=== PATIENT | female | born 1950 | race Caucasian/White ===

== ENCOUNTER 2018-09-24 22:33 | Emergency (ER) | payer MEDICARE, BC ==
--- NOTE | 2018-09-24 22:58 | EDM.PDOC ---
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 Past medical history: As per history of present illness and as reviewed below otherwise noncontributory. Surgical history: As per history of present illness and as reviewed below otherwise noncontributory. Social history: No reported history of drug or alcohol abuse. Family history: As per history of present illness and as reviewed below otherwise noncontributory. Physical exam: HEENT: Atraumatic, normocephalic, pupils reactive, negative for conjunctival pallor or scleral icterus, mucous membranes moist, throat clear, neck supple, nontender, trachea midline. Lungs: Clear to auscultation, breath sounds equal bilaterally, chest nontender. Heart: S1S2, regular, negative for clicks, rubs, or JVD. Abdomen: Soft, nondistended, nontender. Negative for masses or hepatosplenomegaly. Negative for costovertebral tenderness. Pelvis: Stable nontender. Genitourinary: Deferred. Rectal: Deferred. Extremities: Atraumatic, negative for cords or calf pain. Neurovascular unremarkable. Neuro: Awake, alert, oriented. Cranial nerves II through XII unremarkable. Cerebellum unremarkable. Motor and sensory unremarkable throughout. Exam nonfocal. Diagnostics: None Therapeutics: None Impression: 1 history of rheumatoid arthritis #2 history of chronic pain syndrome #3 medical screening exam Definitive disposition and diagnosis as appropriate pending reevaluation and review of above. Left Upper Arm Pain Score (Numeric/FACES): 10 - Related Data Allergies Allergy/AdvReac Type Severity Reaction Status Date / Time Fish pills Allergy Vomiting Uncoded 09/24/18 22:45 Home Meds: Home Meds . [Unable to Verify Home Med List] 09/24/18 [History] Past Medical History Musculoskeletal History: Reports: RA - Past Surgical History Female Surgical History: Reports: Section, Tubal Ligation Social & Family History - Family History Family Medical History: Noncontributory - Tobacco Use Smoking Status *Q: Current Every Day Smoker Years of Tobacco use: 50 Packs/Tins Daily: 0.5 - Recreational Drug Use Recreational Drug Use: No Review of Systems - Review of Systems Review Of Systems: ROS reveals no pertinent complaints other than HPI. ED EXAM, GENERAL - Physical Exam Exam: See Below (See dictation) Course - Vital Signs Last Recorded V/S: Last Vital Signs Temp 36.3 C 09/24/18 22:41 Pulse 88 09/24/18 22:41 Resp 20 09/24/18 22:41 BP 146/85 H 09/24/18 22:41 Pulse Ox 98 09/24/18 22:41 Departure - Departure Time of Disposition: 22:57 Disposition: Home, Self-Care 01 Condition: Good Clinical Impression: History of rheumatoid arthritis, Chronic pain syndrome, Encounter for medical screening examination - Discharge Information Referrals: PCP,None [Primary Care Provider] - Additional Instructions: The following information is given to patients seen in the emergency department who are being discharged to home. This information is to outline your options for follow-up care. We provide all patients seen in our emergency department with a follow-up referral. The need for follow-up, as well as the timing and circumstances, are variable depending upon the specifics of your emergency department visit. If you don't have a primary care physician on staff, we will provide you with a referral. We always advise you to contact your personal physician following an emergency department visit to inform them of the circumstance of the visit and for follow-up with them and/or the need for any referrals to a consulting specialist. The emergency department will also refer you to a specialist when appropriate. This referral assures that you have the opportunity for followup care with a specialist. All of these measure are taken in an effort to provide you with optimal care, which includes your followup. Under all circumstances we always encourage you to contact your private physician who remains a resource for coordinating your care. When calling for followup care, please make the office aware that this follow-up is from your recent emergency room visit. If for any reason you are refused follow-up, please contact the [facility] emergency department at and asked to speak to the emergency department charge nurse. Continue current medications follow-up with private medical doctor tomorrow as discussed and return as needed discussed
== END 2018-09-24 23:10 | disposition home or self-care (01) ==
LOC: MW.ED 22:33
DX: G89.4 Chronic pain syndrome (principal); M05.9 Rheumatoid arthritis with rheumatoid factor, unspecified
CPT/HCPCS: 99282; 99283

== ENCOUNTER 2021-07-06 06:35 | Observation (INO) | payer MEDICARE, BC ==
--- NOTE | 2021-07-06 06:53 | EDM.PDOC ---
<Kobi Celis - Last Filed: 07/06/21 06:53> ED HPI GENERAL MEDICAL PROBLEM - General Chief Complaint: General Stated Complaint: SEVERE CERVICAL SPINE PAIN Time Seen by Provider: 07/06/21 06:45 - History of Present Illness INITIAL COMMENTS - FREE TEXT/NARRATIVE: CHIEF COMPLAINT(S): Fall HISTORY OF PRESENT ILLNESS: This is a 70-year-old man with a past medical history rheumatoid arthritis and chronic pain syndrome per EMR who comes to the emergency department with a chief complaint of fall. The patient states that she was walking on her way to the bathroom when she felt weak as she was having trouble with her vertebrae all day and all night and she may have fell/slid down the wall. She states that she may have hit her head but denies any loss of consciousness. She states that she was experiencing severe neck pain which she currently is rating her pain a 0-10. Per EMS they did provide her with 100 mcg of fentanyl. The patient denies any bowel incontinence, urinary incontinence, saddle anesthesia. She denies any preceding chest pain or shortness of breath. She denies any lower extremity edema. She states that the pain is exacerbated by movement however currently she has no pain at all. She denies any other symptoms. She cannot describe the type of pain. REVIEW OF SYSTEMS: Constitutional: Denies fever, chills. Eyes: Denies eye pain Ears, Nose, Mouth, & Throat: Denies earache Cardiovascular: Denies chest pain Respiratory: Denies shortness of breath Gastrointestinal: Denies Nausea, vomiting, diarrhea, hematochezia. Genitourinary: Denies hematuria Skin:Denies a rash MSK: Positive for neck pain Neurological: Denies blurred vision, numbness, tingling, Psychiatric: Denies depression PAST MEDICAL HISTORY: As per history of present illness and as reviewed below ot herwise noncontributory. SURGICAL HISTORY: As per history of present illness and as reviewed below otherwise noncontributory. SOCIAL HISTORY: As per history of present illness and as reviewed below otherwise noncontributory. FAMILY HISTORY: As per history of present illness and as reviewed below otherwise noncontributory. EXAMINATION OF ORGAN SYSTEMS/BODY AREAS: Constitutional: Blood pressure was 103/45, heart rate 74, respiratory rate 20 with an oxygen saturation a 6% on room air. Temperature 36.6 General: Middle-aged woman who is in no acute distress Psychiatric: Appropriate mood and affect. Intermittently tearful and crying Eyes: No scleral icterus or conjunctival erythema pupils are equal round reactive to light. ENMT: Moist mucous membranes. No pharyngeal erythema no blood in the oropharynx. No missing or chipped teeth. Cardiovascular: Regular, rate, and rhythm. No gallops, murmurs, or rubs. Bilateral upper extremity and lower extremity pulses symmetric and intact. No peripheral edema. No JVD. Respiratory: Lungs clear to auscultation bilaterally. No wheezes, rales, or rhonchi. Gastrointestinal: Soft, non-tender, non-distended. Normoactive bowel sounds Genitourinary: No suprapubic tenderness Musculoskeletal: Normal range of motion. There was no cervical, lumbar, thoracic midline tenderness. No step-offs. Skin: No lesions or abrasions. Neurological: Alert, GCS 15 strength and sensation grossly intact in the upper and lower extremities bilaterally MEDICAL DECISION MAKING AND COURSE IN THE ED WITH INTERPRETATION/REVIEW OF DIAGNOSTIC STUDIES: 70-year-old woman with a past medical history of rheumatoid arthritis and chronic pain syndrome who presents to the emergency department with reported mechanical fall versus syncope with a confusing history with no obvious signs of trauma on the patient's body who is intermittently tearful and crying. At this time it is uncertain as to why the patient was feeling weak at the time. We will obtain an EKG to evaluate for arrhythmia. Will obtain a cardiac work-up including serum alcohol level to evaluate for intoxication. Obtain CT head and CT C-spine given the possibility of head trauma neck trauma. The c-collar is already in place. Obtain a chest x-ray. Patient currently reports 0 out of 10 pain therefore no additional pain medication will be provided. DDx: Fracture, ACS, alcohol intoxication, chronic pain DISPOSITION: Patient was signed out to [facility] physician pending further work-up and final disposition CONDITION: Fair PROCEDURES: None FINAL IMPRESSION(S)/DIAGNOSES: 1. Acute mechanical fall versus syncope 2. Acute neck pain Kobi Celis M.D. Posterior Neck Pain Score (Numeric/FACES): 7 - Related Data Allergies Allergy/AdvReac Type Severity Reaction Status Date / Time Fish pills Allergy Vomiting Uncoded 07/06/21 06:39 Home Meds: Home Meds Acetaminophen [Tylenol Arthritis Pain] 650 mg PO TID 07/06/21 [History] Baclofen 10 mg PO TID 07/06/21 [History] Calcium Carbonate [Calcium] 600 mg PO BID 07/06/21 [History] Folic Acid 1 mg PO DAILY 07/06/21 [History] Gabapentin [Neurontin] 300 mg PO TID 07/06/21 [History] Meloxicam 7.5 mg PO DAILY PRN 07/06/21 [History] hydrOXYzine HCL [Hydroxyzine HCl] 25 mg PO DAILY 07/06/21 [History] predniSONE [Prednisone] 2.5 mg PO DAILY 07/06/21 [History] Citalopram [Citalopram HBr] 10 mg PO DAILY 07/07/21 [History] Past Medical History HEENT History: Reports: None Cardiovascular History: Reports: Hypertension Respiratory History: Reports: None Gastrointestinal History: Reports: None Genitourinary History: Reports: None Musculoskeletal History: Reports: RA Neurological History: Reports: None Psychiatric History: Reports: None Hematologic History: Reports: None Immunologic History: Reports: None Oncologic (Cancer) History: Reports: None Dermatologic History: Reports: None - Past Surgical History Head Surgeries/Procedures: Reports: None HEENT Surgical History: Reports: None Female Surgical History: Reports: Section, Tubal Ligation Oncologic Surgical History: Reports: None Social & Family History - Family History Family Medical History: No Pertinent Family History - Recreational Drug Use Recreational Drug Use: No ED ROS GENERAL - Review of Systems Review Of Systems: See Below ED EXAM, GENERAL - Physical Exam Exam: See Below Departure - Departure Disposition: Refer to Observation Clinical Impression: Orthostasis, Syncope - Discharge Information Sepsis Event Note (ED) - Evaluation Sepsis Screening Result: No Definite Risk <Devon Hale - Last Filed: 07/08/21 07:47> ED HPI GENERAL MEDICAL PROBLEM - History of Present Illness INITIAL COMMENTS - FREE TEXT/NARRATIVE: 9:17 AM: Signout received at 7 AM. Patient presents ER today with a possible syncopal episode at home. CT scan of her head and cervical spine did not reveal any acute pathology. Patient's labs are relatively unremarkable. C-collar was cleared by Dr. Teague after review of CT and clinical exam. Patient denies any weakness to her upper or lower extremities. Patient has no new midline tenderness. Patient reported that she needed to go to the bathroom so we walked her to the bathroom. While walking to the bathroom patient started feeling dizzy and had a subsequent syncopal episode. Patient was laid down gently with no head trauma by myself and the nurse. I was able to palpate a femoral pulse. Patient had sonorous respirations for approximately 1 minute and then slowly became responsive. Patient had no seizure activity. Patient was placed back on the bed safely and vital signs were obtained. Patient's blood pressure was 110/60, heart rate was 72, pulse ox was 98% on room air. July 06, 2021 8:24 AM EKG: As interpreted by ER physician: Alexia: Nonspecific ST-T wave abnormalities Normal axis No evidence of ST elevation NM Normal sinus rhythm heart rate of 60 Repeat troponin: Given patient's hypotension with orthostatics she was given 1 L of NSS. Given her second syncopal episode witnessed here in the ED, I feel patient will need to be admitted for further cardiac monitoring and hydration. Case discussed with Dr. cox who agrees with plan to admit for observation and hydration. Course - Vital Signs Last Recorded V/S: Last Vital Signs Temp 98 F 07/07/21 12:00 Pulse 61 07/07/21 12:00 Resp 16 07/07/21 12:00 BP 120/45 L 07/07/21 12:00 Pulse Ox 97 07/07/21 12:00 Orthostatic Blood Pressure [ 50/22 Standing] Orthostatic Blood Pressure [ 92/49 Sitting] Orthostatic Blood Pressure [ 97/62 Supine] - Orders/Labs/Meds Labs: Laboratory Tests 07/06/21 07/06/21 07/06/21 Range/Units 06:58 07:09 07:09 WBC 13.09 H (4.0-11.0) K/uL RBC 3.58 L (4.30-5.90) M/uL Hgb 12.2 (12.0-16.0) g/dL Hct 35.7 L (36.0-46.0) % MCV 99.7 H (80.0-98.0) fL MCH 34.1 H (27.0-32.0) pg MCHC 34.2 (31.0-37.0) g/dL RDW Std Deviation 46.9 (28.0-62.0) fl RDW Coeff of Magda 13 (11.0-15.0) % Plt Count 334 (150-400) K/uL MPV 8.70 (7.40-12.00) fL Neut % (Auto) 76.4 (48.0-80.0) % Lymph % (Auto) 15.0 L (16.0-40.0) % [place] % (Auto) 8.2 (0.0-15.0) % Eos % (Auto) 0.2 (0.0-7.0) % Baso % (Auto) 0.2 (0.0-1.5) % Neut # (Auto) 10.0 H (1.4-5.7) K/uL Lymph # (Auto) 2.0 (0.6-2.4) K/uL [place] # (Auto) 1.1 H (0.0-0.8) K/uL Eos # (Auto) 0.0 (0.0-0.7) K/uL Baso # (Auto) 0.0 (0.0-0.1) K/uL Nucleated RBC % 0.0 /100WBC Nucleated RBCs # 0 K/uL INR 1.01 Sodium (136-145) mmol/L Potassium (3.5-5.1) mmol/L Chloride (98-107) mmol/L Carbon Dioxide (21.0-32.0) mmol/L BUN (7.0-18.0) mg/dL Creatinine (0.6-1.0) mg/dL Est Cr Clr Drug Dosing mL/min Estimated GFR (MDRD) ml/min Glucose (74-106) mg/dL Calcium (8.5-10.1) mg/dL Magnesium (1.8-2.4) mg/dL Total Bilirubin (0.2-1.0) mg/dL AST (15-37) IU/L ALT (14-63) IU/L Alkaline Phosphatase (46-116) U/L Troponin I (0.000-0.056) ng/mL Total Protein (6.4-8.2) g/dL Albumin (3.4-5.0) g/dL Globulin (2.6-4.0) g/dL Albumin/Globulin Ratio (0.9-1.6) Urine Color Urine Appearance Urine pH (5.0-8.0) Ur Specific [place] (1.001-1.035) Urine Protein (NEGATIVE) mg/dL Urine Glucose (UA) (NEGATIVE) mg/dL Urine Ketones (NEGATIVE) mg/dL Urine Occult Blood (NEGATIVE) Urine Nitrite (NEGATIVE) Urine Bilirubin (NEGATIVE) Urine Urobilinogen (<2.0) EU/dL Ur Leukocyte Esterase (NEGATIVE) Ethyl Alcohol mg/dL SARS-CoV-2 RNA (DEVANTE) NEGATIVE (NEGATIVE) 07/06/21 07/06/21 07/06/21 Range/Units 07:09 08:37 09:37 WBC (4.0-11.0) K/uL RBC (4.30-5.90) M/uL Hgb (12.0-16.0) g/dL Hct (36.0-46.0) % MCV (80.0-98.0) fL MCH (27.0-32.0) pg MCHC (31.0-37.0) g/dL RDW Std Deviation (28.0-62.0) fl RDW Coeff of Magda (11.0-15.0) % Plt Count (150-400) K/uL MPV (7.40-12.00) fL Neut % (Auto) (48.0-80.0) % Lymph % (Auto) (16.0-40.0) % [place] % (Auto) (0.0-15.0) % Eos % (Auto) (0.0-7.0) % Baso % (Auto) (0.0-1.5) % Neut # (Auto) (1.4-5.7) K/uL Lymph # (Auto) (0.6-2.4) K/uL [place] # (Auto) (0.0-0.8) K/uL Eos # (Auto) (0.0-0.7) K/uL Baso # (Auto) (0.0-0.1) K/uL Nucleated RBC % /100WBC Nucleated RBCs # K/uL INR Sodium 133 L (136-145) mmol/L Potassium 4.3 (3.5-5.1) mmol/L Chloride 98 (98-107) mmol/L Carbon Dioxide 26.2 (21.0-32.0) mmol/L BUN 13 (7.0-18.0) mg/dL Creatinine 0.6 (0.6-1.0) mg/dL Est Cr Clr Drug Dosing 78.40 mL/min Estimated GFR (MDRD) > 60.0 ml/min Glucose 113 H (74-106) mg/dL Calcium 8.3 L (8.5-10.1) mg/dL Magnesium 1.9 (1.8-2.4) mg/dL Total Bilirubin 0.3 (0.2-1.0) mg/dL AST 17 (15-37) IU/L ALT 22 (14-63) IU/L Alkaline Phosphatase 89 (46-116) U/L Troponin I < 0.050 < 0.050 (0.000-0.056) ng/mL Total Protein 6.3 L (6.4-8.2) g/dL Albumin 2.7 L (3.4-5.0) g/dL Globulin 3.6 (2.6-4.0) g/dL Albumin/Globulin Ratio 0.8 L (0.9-1.6) Urine Color YELLOW Urine Appearance SLT CLOUDY Urine pH 7.0 (5.0-8.0) Ur Specific [place] 1.010 (1.001-1.035) Urine Protein NEGATIVE (NEGATIVE) mg/dL Urine Glucose (UA) NEGATIVE (NEGATIVE) mg/dL Urine Ketones NEGATIVE (NEGATIVE) mg/dL Urine Occult Blood NEGATIVE (NEGATIVE) Urine Nitrite NEGATIVE (NEGATIVE) Urine Bilirubin NEGATIVE (NEGATIVE) Urine Urobilinogen 0.2 (<2.0) EU/dL Ur Leukocyte Esterase NEGATIVE (NEGATIVE) Ethyl Alcohol < 3.0 mg/dL SARS-CoV-2 RNA (DEVANTE) (NEGATIVE) Meds: Medications Discontinued Medications Generic Name Dose Route Start Last Admin Trade Name Freq PRN Reason Stop Dose Admin Acetaminophen 650 mg 07/06/21 14:43 Acetaminophen 325 Mg Tab PO Q4H PRN Pain (Mild 1-3)/fever Hydrocodone Bitart/Acetaminophen 2 tab 07/06/21 10:22 07/06/21 10:32 Acetaminophen/Hydrocodone 325-5 Mg Tab PO 07/06/21 10:23 2 tab ONETIME ONE Administration Baclofen 10 mg 07/06/21 10:22 07/06/21 10:49 Baclofen 10 Mg Tab PO 07/06/21 10:23 10 mg ONETIME ONE Administration Baclofen 10 mg 07/06/21 10:45 07/06/21 11:32 Baclofen 10 Mg Tab PO 07/06/21 10:46 Not Given ONETIME ONE Baclofen 10 mg 07/06/21 22:00 07/07/21 14:14 Baclofen 10 Mg Tab PO 10 mg TID CHUN Administration Citalopram Hydrobromide 10 mg 07/06/21 15:00 07/06/21 15:27 Citalopram 20 Mg Tab PO 10 mg DAILY CHUN Administration Citalopram Hydrobromide 10 mg 07/07/21 09:00 07/07/21 12:41 Citalopram 20 Mg Tab PO Not Given DAILY CHUN Citalopram Hydrobromide 20 mg 07/07/21 10:00 07/07/21 10:19 Citalopram 20 Mg Tab PO 20 mg DAILY CHUN Administration Enoxaparin Sodium 40 mg 07/06/21 15:00 07/07/21 14:14 Enoxaparin 40 Mg/0.4 Ml Syringe SUBCUT 40 mg Q24H CHUN Administration Gabapentin 300 mg 07/06/21 22:00 07/07/21 14:14 Gabapentin 300 Mg Cap PO 300 mg TID CHUN Administration Hydroxyzine HCl 12.5 mg 07/06/21 15:00 07/06/21 15:27 Hydroxyzine Hcl 25 Mg Tab PO 12.5 mg DAILY PRN Administration Anxiety Sodium Chloride 1,000 mls @ 999 mls/hr 07/06/21 08:26 07/06/21 08:48 Normal Saline IV 07/06/21 09:26 999 mls/hr .Bolus ONE Administration Sodium Chloride 1,000 mls @ 75 mls/hr 07/06/21 14:45 07/07/21 03:47 Normal Saline IV 75 mls/hr Q13H CHUN Administration Meloxicam 7.5 mg 07/06/21 15:00 07/07/21 06:38 Meloxicam 7.5 Mg Tab PO 7.5 mg DAILY PRN Administration Pain Midodrine 5 mg 07/07/21 07:30 07/07/21 11:38 Midodrine 5 Mg Tab PO 5 mg TIDAC CHUN Administration Non-Formulary Medication 1 each 07/06/21 14:37 Hydrocodone/Acetaminophen PO Q4HR PRN Pain Ondansetron HCl 4 mg 07/06/21 14:43 Ondansetron 4 Mg Tab.Dis PO Q4H PRN nausea, able to take PO Prednisone 2.5 mg 07/06/21 15:45 07/07/21 08:00 Prednisone 5 Mg Tab PO 2.5 mg DAILY CHUN Administration Departure - Departure Time of Disposition: 10:00 Condition: Fair
--- NOTE | 2021-07-06 06:58 | PCM.EKG ---
#1 Interpretation EKG Date: 07/06/21 Time: 06:51 Rhythm: NSR Rate (Beats/Min): 67 [place]: Normal P-Wave: Present QRS: Normal ST-T: Normal QT: Normal Comparison: NA - No Prior EKG EKG Interpretation Comments: Sinus Rhythm
--- NOTE | 2021-07-06 07:35 | CR ---
Indication: Fall Comparison: None available. Technique: Single AP view chest Findings: There is hyperinflation and chronic interstitial change. There are mildly increased interstitial markings likely representing pulmonary vascular congestion. There is minimal basilar atelectasis versus scar. There is no dense consolidation, effusion, or pneumothorax. The cardiomediastinal silhouette is within normal limits. The bony thorax is grossly intact. Impression: Mildly increased interstitial markings likely representing pulmonary vascular congestion with minimal basilar atelectasis versus scar. Dictated by Nikko Savage MD @ 07/06/2021 7:34:22 AM (Electronically Signed)
--- NOTE | 2021-07-06 07:43 | CT ---
Indication: Fall Technique: Volumetric multidetector CT images of the head were obtained without the administration of low osmolar intravenous contrast. Comparison: None available Findings: There is no intra-axial or extra-axial fluid collection. There is no mass effect or midline shift. There is age-related cortical atrophy with mild sulcal widening and ex vacuo dilatation of the lateral ventricles. There are chronic small vessel disease changes in the subcortical and periventricular white matter without lost mcdonald-white differentiation. The orbits and their contents are grossly within normal limits. The bony calvarium is grossly intact. The paranasal sinuses are clear. The mastoid air cells are well aerated. Impression: 1. Age-related changes of the brain without acute intracranial abnormality. Please note that all CT scans at this facility use dose modulation, iterative reconstruction, and/or weight-based dosing when appropriate to reduce radiation dose to as low as reasonably achievable. Dictated by Nikko Savage MD @ 07/06/2021 7:42:35 AM (Electronically Signed)
--- NOTE | 2021-07-06 07:47 | CT ---
Indication: Neck pain, fall Technique: Volumetric multidetector CT images of the cervical spine were obtained without the administration of IV contrast. Comparison: None available. Findings: The cervical vertebral body heights are grossly maintained. There is minimal anterolisthesis of C3 on C4 and retrolisthesis of C4 on C5 as well as marked anterolisthesis of C6 on C7. There is no displaced fracture or dislocation. There is moderate to severe degenerative disc disease with disc height loss and marginal osteophyte formation with subchondral sclerotic changes worst the C6-C7 levels. There is severe facet arthrosis. There is moderate paraseptal emphysematous changes of the upper lobes with mild biapical pleural thickening. Impression: Moderate to severe degenerative changes of the cervical spine without acute osseous abnormality. Please note that all CT scans at this facility use dose modulation, iterative reconstruction, and/or weight-based dosing when appropriate to reduce radiation dose to as low as reasonably achievable. Dictated by Nikko Savage MD @ 07/06/2021 7:46:58 AM (Electronically Signed)
[2021-07-06 07:52] LABS: BLOOD UREA NITROGEN,BUN 13 mg/dL (7.0-18.0); CARBON DIOXIDE,CO2 26.2 mmol/L (21.0-32.0); CHLORIDE,CL 98 mmol/L (98-107); GLUCOSE RANDOM 113 mg/dL (74-106); POTASSIUM,K 4.3 mmol/L (3.5-5.1); SODIUM,NA 133 mmol/L (136-145)
[2021-07-06] MEDS ORDERED: Sodium Chloride 0.9% 1,000 ML IV ONE (08:26)
[2021-07-06] MEDS ORDERED: Acetaminophen/HYDROcodone 325-5 MG Tab PO ONE (10:22)
[2021-07-06] MEDS ORDERED: Baclofen 10 MG Tab PO ONE ×2 (10:22→10:45)
--- NOTE | 2021-07-06 14:27 | PCM.HP.2 ---
H&P History of Present Illness - General Date of Service: 07/06/21 Admit Problem/Dx: Admission Diagnosis/Problem Admission Diagnosis/Problem Near syncope - History of Present Illness Initial Comments - Free Text/Narative: Mrs. Summer Hedrick is a 70 y/o F with a h/o rheumatoid arthritis and chronic pain syndrome who was brought to the ED after she fell at home. The patient states that she got up at about 5 am to use the bathroom. On her way she got very weak in her legs. She leaned against a wall and slowly slid to the ground. She states that she may have hit her head but denies any loss of consciousness. She states that she was experiencing severe neck pain which she currently is rating her pain 10/10. She was able to afsaneh the EMS. On arrival she was given some IV Fentanyl for her neck pain. The patient denies any loss of bowel or bladder function. She also denies having any localized weaknesses or loss of sensation. In the ED her orthostatic vitals were positive. She has been eating and drinking just fine. Denies having any nausea, vomiting, diarrhea or abdominal pain. She denies having any other constitutional symptoms and denies having been around any sick contacts. She has no history of seizures or any arrhythmias. Posterior Neck Pain Score (Numeric/FACES): 7 - Related Data Allergies/Adverse Reactions: Allergies Allergy/AdvReac Type Severity Reaction Status Date / Time Fish pills Allergy Vomiting Uncoded 07/06/21 06:39 Home Medications: Home Meds Acetaminophen [Tylenol Arthritis Pain] 650 mg PO TID 07/06/21 [History] Baclofen 10 mg PO TID 07/06/21 [History] Calcium Carbonate [Calcium] 600 mg PO BID 07/06/21 [History] Cholecalciferol (Vitamin D3) [Vitamin D] 1 tab PO DAILY 07/06/21 [History] Escitalopram [Lexapro] 20 mg PO DAILY 07/06/21 [History] Folic Acid 1 mg PO DAILY 07/06/21 [History] Gabapentin [Neurontin] 300 mg PO TID 07/06/21 [History] Hydrocodone/Acetaminophen [HYDROcodone-Acetaminophen 5-325 MG] 1 each PO Q4HR PRN 07/06/21 [History] Meloxicam 7.5 mg PO DAILY PRN 07/06/21 [History] hydrOXYzine HCL [Hydroxyzine HCl] 25 mg PO DAILY 07/06/21 [History] predniSONE [Prednisone] 2.5 mg PO DAILY 07/06/21 [History] Past Medical History HEENT History: Reports: Impaired Vision Cardiovascular History: Reports: None Respiratory History: Reports: COPD Gastrointestinal History: Reports: None Genitourinary History: Reports: None 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: Musculoskeletal History: Reports: Back Pain, Chronic, RA Neurological History: Reports: None Psychiatric History: Reports: Anxiety Endocrine/Metabolic History: Reports: None Hematologic History: Reports: None Immunologic History: Reports: None Oncologic (Cancer) History: Reports: None Dermatologic History: Reports: None - Infectious Disease History Infectious Disease History: Reports: Chicken Pox - Past Surgical History Head Surgeries/Procedures: Reports: None HEENT Surgical History: Reports: None Female Surgical History: Reports: Section, Tubal Ligation Musculoskeletal Surgical History: Reports: None Oncologic Surgical History: Reports: None Social & Family History - Family History Family Medical History: No Pertinent Family History - Tobacco Use Tobacco Use Status *Q: Current Every Day Tobacco User Years of Tobacco use: 52 Packs/Tins Daily: 0.5 - Caffeine Use Caffeine Use: Reports: Coffee - Recreational Drug Use Recreational Drug Use: No H&P Review of Systems - Review of Systems: Review Of Systems: Comprehensive ROS is negative, except as noted in HPI. Exam - Exam Exam: See Below - Vital Signs Vital Signs: Last Vital Signs Temp 97.7 F 07/06/21 12:21 Pulse 72 07/06/21 12:21 Resp 15 07/06/21 12:21 BP 83/42 L 07/06/21 12:21 Pulse Ox 96 07/06/21 12:21 Orthostatic Blood Pressure [ 50/22 Standing] Orthostatic Blood Pressure [ 92/49 Sitting] Orthostatic Blood Pressure [ 97/62 Supine] Weight: 123 lb 3.2 oz - Exam Physical Exam Comments:: General: Thin elderly female. In no acute distress CVS: S1S2 appreciated. RRR lungs: clear with no rales or wheezes pa: soft, non tender. bowel sounds present ext: no clubbing, cyanosis or edema neuro: moves all extremities. Sensation 5/5 bilaterally psych: stable mood and affect. - Patient Data Lab Results Last 24 hrs: Laboratory Results - last 24 hr 07/06/21 07/06/21 07/06/21 Range/Units 06:58 07:09 07:09 WBC 13.09 H (4.0-11.0) K/uL RBC 3.58 L (4.30-5.90) M/uL Hgb 12.2 (12.0-16.0) g/dL Hct 35.7 L (36.0-46.0) % MCV 99.7 H (80.0-98.0) fL MCH 34.1 H (27.0-32.0) pg MCHC 34.2 (31.0-37.0) g/dL RDW Std Deviation 46.9 (28.0-62.0) fl RDW Coeff of Magda 13 (11.0-15.0) % Plt Count 334 (150-400) K/uL MPV 8.70 (7.40-12.00) fL Neut % (Auto) 76.4 (48.0-80.0) % Lymph % (Auto) 15.0 L (16.0-40.0) % [place] % (Auto) 8.2 (0.0-15.0) % Eos % (Auto) 0.2 (0.0-7.0) % Baso % (Auto) 0.2 (0.0-1.5) % Neut # (Auto) 10.0 H (1.4-5.7) K/uL Lymph # (Auto) 2.0 (0.6-2.4) K/uL [place] # (Auto) 1.1 H (0.0-0.8) K/uL Eos # (Auto) 0.0 (0.0-0.7) K/uL Baso # (Auto) 0.0 (0.0-0.1) K/uL Nucleated RBC % 0.0 /100WBC Nucleated RBCs # 0 K/uL INR 1.01 Sodium (136-145) mmol/L Potassium (3.5-5.1) mmol/L Chloride (98-107) mmol/L Carbon Dioxide (21.0-32.0) mmol/L BUN (7.0-18.0) mg/dL Creatinine (0.6-1.0) mg/dL Est Cr Clr Drug Dosing mL/min Estimated GFR (MDRD) ml/min Glucose (74-106) mg/dL Calcium (8.5-10.1) mg/dL Magnesium (1.8-2.4) mg/dL Total Bilirubin (0.2-1.0) mg/dL AST (15-37) IU/L ALT (14-63) IU/L Alkaline Phosphatase (46-116) U/L Troponin I (0.000-0.056) ng/mL Total Protein (6.4-8.2) g/dL Albumin (3.4-5.0) g/dL Globulin (2.6-4.0) g/dL Albumin/Globulin Ratio (0.9-1.6) Urine Color Urine Appearance Urine pH (5.0-8.0) Ur Specific [place] (1.001-1.035) Urine Protein (NEGATIVE) mg/dL Urine Glucose (UA) (NEGATIVE) mg/dL Urine Ketones (NEGATIVE) mg/dL Urine Occult Blood (NEGATIVE) Urine Nitrite (NEGATIVE) Urine Bilirubin (NEGATIVE) Urine Urobilinogen (<2.0) EU/dL Ur Leukocyte Esterase (NEGATIVE) Ethyl Alcohol mg/dL SARS-CoV-2 RNA (DEVANTE) NEGATIVE (NEGATIVE) 07/06/21 07/06/21 07/06/21 Range/Units 07:09 08:37 09:37 WBC (4.0-11.0) K/uL RBC (4.30-5.90) M/uL Hgb (12.0-16.0) g/dL Hct (36.0-46.0) % MCV (80.0-98.0) fL MCH (27.0-32.0) pg MCHC (31.0-37.0) g/dL RDW Std Deviation (28.0-62.0) fl RDW Coeff of Magda (11.0-15.0) % Plt Count (150-400) K/uL MPV (7.40-12.00) fL Neut % (Auto) (48.0-80.0) % Lymph % (Auto) (16.0-40.0) % [place] % (Auto) (0.0-15.0) % Eos % (Auto) (0.0-7.0) % Baso % (Auto) (0.0-1.5) % Neut # (Auto) (1.4-5.7) K/uL Lymph # (Auto) (0.6-2.4) K/uL [place] # (Auto) (0.0-0.8) K/uL Eos # (Auto) (0.0-0.7) K/uL Baso # (Auto) (0.0-0.1) K/uL Nucleated RBC % /100WBC Nucleated RBCs # K/uL INR Sodium 133 L (136-145) mmol/L Potassium 4.3 (3.5-5.1) mmol/L Chloride 98 (98-107) mmol/L Carbon Dioxide 26.2 (21.0-32.0) mmol/L BUN 13 (7.0-18.0) mg/dL Creatinine 0.6 (0.6-1.0) mg/dL Est Cr Clr Drug Dosing 78.40 mL/min Estimated GFR (MDRD) > 60.0 ml/min Glucose 113 H (74-106) mg/dL Calcium 8.3 L (8.5-10.1) mg/dL Magnesium 1.9 (1.8-2.4) mg/dL Total Bilirubin 0.3 (0.2-1.0) mg/dL AST 17 (15-37) IU/L ALT 22 (14-63) IU/L Alkaline Phosphatase 89 (46-116) U/L Troponin I < 0.050 < 0.050 (0.000-0.056) ng/mL Total Protein 6.3 L (6.4-8.2) g/dL Albumin 2.7 L (3.4-5.0) g/dL Globulin 3.6 (2.6-4.0) g/dL Albumin/Globulin Ratio 0.8 L (0.9-1.6) Urine Color YELLOW Urine Appearance SLT CLOUDY Urine pH 7.0 (5.0-8.0) Ur Specific [place] 1.010 (1.001-1.035) Urine Protein NEGATIVE (NEGATIVE) mg/dL Urine Glucose (UA) NEGATIVE (NEGATIVE) mg/dL Urine Ketones NEGATIVE (NEGATIVE) mg/dL Urine Occult Blood NEGATIVE (NEGATIVE) Urine Nitrite NEGATIVE (NEGATIVE) Urine Bilirubin NEGATIVE (NEGATIVE) Urine Urobilinogen 0.2 (<2.0) EU/dL Ur Leukocyte Esterase NEGATIVE (NEGATIVE) Ethyl Alcohol < 3.0 mg/dL SARS-CoV-2 RNA (DEVANTE) (NEGATIVE) Result Diagrams: 07/06/21 07:09 07/06/21 07:09 Sepsis Event Note - Evaluation Sepsis Screening Result: No Definite Risk - Focused Exam Vital Signs: Vital Signs Temp Pulse Resp BP Pulse Ox 07/06/21 12:21 97.7 F 72 15 83/42 L 96 07/06/21 10:31 62 16 123/48 L 100 07/06/21 08:02 67 17 111/61 93 L 07/06/21 06:43 97.8 F 74 20 103/45 L 96 - Problem List (1) Near syncope SNOMED Code(s): 066822106 ICD Code: R55 - SYNCOPE AND COLLAPSE Status: Acute Current Visit: Yes (2) Orthostasis SNOMED Code(s): 30004558 ICD Code: I95.1 - ORTHOSTATIC HYPOTENSION Status: Acute Current Visit: Yes (3) Tobacco abuse SNOMED Code(s): 935814225 ICD Code: Z72.0 - TOBACCO USE Status: Acute Current Visit: Yes (4) Chronic pain syndrome SNOMED Code(s): 491025714 ICD Code: G89.4 - CHRONIC PAIN SYNDROME Status: Acute Current Visit: No (5) Polypharmacy SNOMED Code(s): 085743069 ICD Code: Z79.899 - OTHER FDC (CURRENT) DRUG THERAPY Status: Acute Current Visit: Yes (6) Full code status SNOMED Code(s): 692695536 ICD Code: Z78.9 - OTHER SPECIFIED HEALTH STATUS Status: Acute Current Visit: Yes Problem List Initiated/Reviewed/Updated: Yes Orders Last 24hrs: Active Orders 24 hr Category Date Time Status Patient Status [ADT] Routine ADT 07/06/21 09:16 Active Telemetry Monitoring [Cardiac Monitoring] [RC] . Care 07/06/21 11:04 Active DIRECTED Assessment/Plan Comment:: 71 y/o F admitted with a near syncope episode most likely due to orthostatic hypotension. Other etiologies include arrhythmia, neurocardiogenic and vasovagal syncope as well as non cardiac causes Admit pt under observation status. IV hydration orthostatics Q 8 Cervical spine disease out pt follow up Polypharmacy Pt will need a reduction in some of her psychoactive medications Chronic pain Full code status.
[2021-07-06] MEDS ORDERED: Non-Formulary Medication 1 Each (Hydrocodone/Acetaminophen 1 EACH Tablet) PO PRN (14:37)
[2021-07-06] MEDS ORDERED: Ondansetron 4 MG Tab.DIS PO PRN (14:43)
[2021-07-06] MEDS ORDERED: Acetaminophen 325 MG Tab PO PRN (14:43)
[2021-07-06] MEDS ORDERED: hydrOXYzine HCl 25 MG Tab PO PRN (15:00)
[2021-07-06] MEDS ORDERED: Citalopram 20 MG Tab PO SCH (15:00)
[2021-07-06] MEDS: Sodium Chloride 0.9% 1,000 ML IV SCH (15:27)
[2021-07-06] MEDS: Meloxicam 7.5 MG Tab PO PRN (15:27)
[2021-07-06] MEDS: Enoxaparin 40 MG/0.4 ML Syringe SUBCUT SCH (15:27)
[2021-07-06] MEDS: predniSONE 5 MG Tab PO SCH (16:24)
[2021-07-06] MEDS: Baclofen 10 MG Tab PO SCH (21:11)
[2021-07-06] MEDS: Gabapentin 300 MG Cap PO SCH (21:11)
[2021-07-07] MEDS: Sodium Chloride 0.9% 1,000 ML IV SCH (03:47)
[2021-07-07] MEDS: Gabapentin 300 MG Cap PO SCH ×2 (06:33→14:14)
[2021-07-07] MEDS: Baclofen 10 MG Tab PO SCH ×2 (06:33→14:14)
[2021-07-07] MEDS: Midodrine 5 MG Tab PO SCH ×2 (06:33→11:38)
[2021-07-07] MEDS: Meloxicam 7.5 MG Tab PO PRN (06:38)
[2021-07-07] MEDS: predniSONE 5 MG Tab PO SCH (08:00)
[2021-07-07 08:14] LABS: BLOOD UREA NITROGEN,BUN 8 mg/dL (7.0-18.0); CHLORIDE,CL 102 mmol/L (98-107); GLUCOSE RANDOM 121 mg/dL (74-106); POTASSIUM,K 3.4 mmol/L (3.5-5.1); SODIUM,NA 135 mmol/L (136-145)
[2021-07-07 08:38] LABS: CARBON DIOXIDE,CO2 25.7 mmol/L (21.0-32.0)
[2021-07-07] MEDS ORDERED: Citalopram 20 MG Tab PO SCH ×2 (09:00→10:00)
--- NOTE | 2021-07-07 12:27 | PCM.DCSUM1 ---
Discharge Summary - Hospital Course Free Text/Narrative:: Mrs. Summer Hedrick is a 70 y/o F with a h/o rheumatoid arthritis and chronic pain syndrome who was brought to the ED after she fell at home. The patient states that she got up at about 5 am to use the bathroom. On her way she got very weak in her legs. She leaned against a wall and slowly slid to the ground. She states that she may have hit her head but denies any loss of consciousness. She states that she was experiencing severe neck pain which she currently is rating her pain 10/10. She was able to afsaneh the EMS. On arrival she was given some IV Fentanyl for her neck pain. The patient denies any loss of bowel or bladder function. She also denies having any localized weaknesses or loss of sensation. In the ED her orthostatic vitals were positive. She has been eating and drinking just fine. Denies having any nausea, vomiting, diarrhea or abdominal pain. She denies having any other constitutional symptoms and denies having been around any sick contacts. She has no history of seizures or any arrhythmias. Diagnosis: Stroke: No - Discharge Data Discharge Date: 07/07/21 Discharge Disposition: Home, Self-Care 01 Condition: Stable - Referral to Home Health Primary Care Physician: PCP None - Discharge Diagnosis/Problem(s) (1) Near syncope SNOMED Code(s): 627775794 ICD Code: R55 - SYNCOPE AND COLLAPSE Status: Acute Current Visit: Yes (2) Orthostasis SNOMED Code(s): 83199599 ICD Code: I95.1 - ORTHOSTATIC HYPOTENSION Status: Acute Current Visit: Yes (3) Tobacco abuse SNOMED Code(s): 683290000 ICD Code: Z72.0 - TOBACCO USE Status: Acute Current Visit: Yes (4) Chronic pain syndrome SNOMED Code(s): 748127474 ICD Code: G89.4 - CHRONIC PAIN SYNDROME Status: Acute Current Visit: No (5) Polypharmacy SNOMED Code(s): 509227512 ICD Code: Z79.899 - OTHER BLOCK [employer]ABLE[employer] (CURRENT) DRUG THERAPY Status: Acute Current Visit: Yes (6) Full code status SNOMED Code(s): 889929451 ICD Code: Z78.9 - OTHER SPECIFIED HEALTH STATUS Status: Acute Current Visit: Yes - Discharge Plan *PRESCRIPTION DRUG MONITORING PROGRAM REVIEWED*: No *COPY OF PRESCRIPTION DRUG MONITORING REPORT IN PATIENT NALDO: No Home Medications: Home Meds Acetaminophen [Tylenol Arthritis Pain] 650 mg PO TID 07/06/21 [History] Baclofen 10 mg PO TID 07/06/21 [History] Calcium Carbonate [Calcium] 600 mg PO BID 07/06/21 [History] Folic Acid 1 mg PO DAILY 07/06/21 [History] Gabapentin [Neurontin] 300 mg PO TID 07/06/21 [History] Meloxicam 7.5 mg PO DAILY PRN 07/06/21 [History] hydrOXYzine HCL [Hydroxyzine HCl] 25 mg PO DAILY 07/06/21 [History] predniSONE [Prednisone] 2.5 mg PO DAILY 07/06/21 [History] Citalopram [Citalopram HBr] 10 mg PO DAILY 07/07/21 [History] Patient Handouts: Steps to Quit Smoking, [id number], Managing the Challenge of Quitting Smoking, Health Risks of Smoking, Smoking Tobacco Information, Adult, Orthostatic Hypotension, Near-Syncope, [id number] Referrals: PCP,None [Primary Care Provider] - - Discharge Summary/Plan Comment DC Time >30 min.: Yes Total # of Minutes for Discharge Time: 45 mins Discharge Summary/Plan Comment: Mrs. Summer Hedrick is a 70 y/o F with a h/o rheumatoid arthritis and chronic pain syndrome who was brought to the ED after she fell at home. She was noted to have orthostatic hypotension. She was given IVF's and midodrine. He BP normalized and she was discharged home the following day in a stable condition. Condition on discharge: Pt was stable Activity: as tolerated Diet regular Pt is to follow up with her PCP in 1 wk. Physical exam. General: Thin elderly female. In no acute distress. Pt is in good spirits today. CVS: S1S2 appreciated. RRR lungs: clear with no rales or wheezes pa: soft, non tender. bowel sounds present ext: no clubbing, cyanosis or edema neuro: moves all extremities. Sensation 5/5 bilaterally psych: stable mood and affect. - Patient Data Vitals - Most Recent: Last Vital Signs Temp 98 F 07/07/21 12:00 Pulse 61 07/07/21 12:00 Resp 16 07/07/21 12:00 BP 120/45 L 07/07/21 12:00 Pulse Ox 97 07/07/21 12:00 Orthostatic Blood Pressure [ 103/58 Standing] Orthostatic Blood Pressure [ 127/68 Sitting] Orthostatic Blood Pressure [ 120/65 Supine] Weight - Most Recent: 123 lb 3.2 oz I&O - Last 24 hours: Intake & Output 07/06/21 07/07/21 07/07/21 22:59 06:59 14:59 Intake Total 500 1400 Balance 500 1400 Lab Results - Last 24 hrs: Laboratory Results - last 24 hr 07/07/21 Range/Units 07:20 Sodium 135 L (136-145) mmol/L Potassium 3.4 L (3.5-5.1) mmol/L Chloride 102 (98-107) mmol/L Carbon Dioxide 25.7 (21.0-32.0) mmol/L BUN 8 (7.0-18.0) mg/dL Creatinine 0.5 L (0.6-1.0) mg/dL Est Cr Clr Drug Dosing 95.00 mL/min Estimated GFR (MDRD) > 60.0 ml/min Glucose 121 H (74-106) mg/dL Calcium 8.0 L (8.5-10.1) mg/dL Med Orders - Current: Current Medications Acetaminophen (Acetaminophen 325 Mg Tab) 650 mg PO Q4H PRN PRN Reason: Pain (Mild 1-3)/fever Baclofen (Baclofen 10 Mg Tab) 10 mg PO TID [facility] Last Admin: 07/07/21 06:33 Dose: 10 mg Documented by: Citalopram Hydrobromide (Citalopram 20 Mg Tab) 20 mg PO DAILY [facility] Last Admin: 07/07/21 10:19 Dose: 20 mg Documented by: Enoxaparin Sodium (Enoxaparin 40 Mg/0.4 Ml Syringe) 40 mg SUBCUT Q24H [facility] Last Admin: 07/06/21 15:27 Dose: 40 mg Documented by: Gabapentin (Gabapentin 300 Mg Cap) 300 mg PO TID [facility] Last Admin: 07/07/21 06:33 Dose: 300 mg Documented by: Hydroxyzine HCl (Hydroxyzine Hcl 25 Mg Tab) 12.5 mg PO DAILY PRN PRN Reason: Anxiety Last Admin: 07/06/21 15:27 Dose: 12.5 mg Documented by: Sodium Chloride (Normal Saline) 1,000 mls @ 75 mls/hr IV Q13H [facility] Last Admin: 07/07/21 03:47 Dose: 75 mls/hr Documented by: Meloxicam (Meloxicam 7.5 Mg Tab) 7.5 mg PO DAILY PRN PRN Reason: Pain Last Admin: 07/07/21 06:38 Dose: 7.5 mg Documented by: Midodrine (Midodrine 5 Mg Tab) 5 mg PO TIDAC [facility] Last Admin: 07/07/21 11:38 Dose: 5 mg Documented by: Ondansetron HCl (Ondansetron 4 Mg Tab.Dis) 4 mg PO Q4H PRN PRN Reason: nausea, able to take PO Prednisone (Prednisone 5 Mg Tab) 2.5 mg PO DAILY [facility] Last Admin: 07/07/21 08:00 Dose: 2.5 mg Documented by: Discontinued Medications Hydrocodone Bitart/Acetaminophen (Acetaminophen/Hydrocodone 325-5 Mg Tab) 2 tab PO ONETIME ONE Stop: 07/06/21 10:23 Last Admin: 07/06/21 10:32 Dose: 2 tab Documented by: Baclofen (Baclofen 10 Mg Tab) 10 mg PO ONETIME ONE Stop: 07/06/21 10:23 Last Admin: 07/06/21 10:49 Dose: 10 mg Documented by: Baclofen (Baclofen 10 Mg Tab) 10 mg PO ONETIME ONE Stop: 07/06/21 10:46 Last Admin: 07/06/21 11:32 Dose: Not Given Documented by: Citalopram Hydrobromide (Citalopram 20 Mg Tab) 10 mg PO DAILY [facility] Last Admin: 07/06/21 15:27 Dose: 10 mg Documented by: Citalopram Hydrobromide (Citalopram 20 Mg Tab) 10 mg PO DAILY [facility] Sodium Chloride (Normal Saline) 1,000 mls @ 999 mls/hr IV .Bolus ONE Stop: 07/06/21 09:26 Last Admin: 07/06/21 08:48 Dose: 999 mls/hr Documented by: Non-Formulary Medication (Hydrocodone/Acetaminophen) 1 each PO Q4HR PRN PRN Reason: Pain
[2021-07-07] MEDS: Enoxaparin 40 MG/0.4 ML Syringe SUBCUT SCH (14:14)
== END 2021-07-07 15:45 | disposition home or self-care (01) ==
LOC: MW.ED 06:35 → MW.MS 09:38
PROVIDERS: ADMIT Hospitalist; ATTEND Hospitalist
DX: R55 Syncope and collapse (principal); I95.1 Orthostatic hypotension; R53.1 Weakness; M06.9 Rheumatoid arthritis, unspecified; G89.4 Chronic pain syndrome; J44.9 Chronic obstructive pulmonary disease, unspecified; F17.210 Nicotine dependence, cigarettes, uncomplicated; Z91.013 Allergy to seafood; Z79.899 Other long term (current) drug therapy; Z20.822 Contact with and (suspected) exposure to COVID-19
CPT/HCPCS: 36415; 70450; 71045; 72125; 80048; 80053; 80307; 81003; 82533; 83735; 84484; 85025; 85610; 93005; 96372; 99285; A9270; G0378; J1650; J7030; J7512; U0002

== ENCOUNTER 2021-12-29 22:52 | Observation (INO) | payer MEDICARE, BC ==
[2021-12-30] MEDS ORDERED: Sodium Chloride 0.9% 10 ML Syringe FLUSH PRN (00:03)
[2021-12-30] MEDS ORDERED: Sodium Chloride 0.9% 2.5 ML Syringe FLUSH PRN (00:03)
[2021-12-30] MEDS ORDERED: Sodium Chloride 0.9% 1,000 ML IV ONE (00:03)
[2021-12-30 01:05] LABS: BLOOD UREA NITROGEN,BUN 21 mg/dL (7.0-18.0); CARBON DIOXIDE,CO2 23.1 mmol/L (21.0-32.0); CHLORIDE,CL 93 mmol/L (98-107); GLUCOSE RANDOM 113 mg/dL (74-106); POTASSIUM,K 4.5 mmol/L (3.5-5.1); SODIUM,NA 126 mmol/L (136-145)
[2021-12-30] MEDS ORDERED: Iopamidol 755 MG/ML 500 ML Multipack Bottle IVPUSH ONE (02:50)
[2021-12-30] MEDS ORDERED: Piperacillin/Tazobactam 3.375 GM in Sodium Chloride 0.9% 50 ML IV ONE (04:36)
[2021-12-30] MEDS ORDERED: Ondansetron 4 MG/2 ML SDV IVPUSH PRN (08:54)
[2021-12-30] MEDS ORDERED: Albuterol/Ipratropium 3.0-0.5 MG/3 ML Neb Soln NEB PRN (08:55)
[2021-12-30] MEDS: Piperacillin/Tazobactam 3.375 GM in Sodium Chloride 0.9% 50 ML IV SCH ×2 (10:03→18:19)
[2021-12-30 11:39] LABS: BLOOD UREA NITROGEN,BUN 11 mg/dL (7.0-18.0); CARBON DIOXIDE,CO2 23.9 mmol/L (21.0-32.0); CHLORIDE,CL 97 mmol/L (98-107); GLUCOSE RANDOM 98 mg/dL (74-106); POTASSIUM,K 4.3 mmol/L (3.5-5.1); SODIUM,NA 128 mmol/L (136-145)
[2021-12-30] MEDS ORDERED: Morphine 2 MG/ML SYRINGE IVPUSH ONE (12:21)
[2021-12-30] MEDS ORDERED: Sucralfate Suspension 1 GM/10 ML Cup PO ONE (14:37)
[2021-12-30] MEDS ORDERED: Polyethylene Glycol 3350 Powder 17 GM Packet PO ONE (14:40)
[2021-12-30] MEDS: Pantoprazole 40 MG in Sodium Chloride 0.9% 10 ML IVPUSH SCH (16:01)
[2021-12-30] MEDS: predniSONE 5 MG Tab PO SCH (16:06)
[2021-12-30] MEDS: Calcium Carbonate 500 MG Tablet PO SCH (21:43)
[2021-12-30] MEDS: Acetaminophen 325 MG Tab PO SCH (21:43)
[2021-12-30] MEDS: Baclofen 10 MG Tab PO SCH (21:44)
[2021-12-30] MEDS: Gabapentin 300 MG Cap PO SCH (21:44)
[2021-12-31] MEDS: Lactated Ringers 1,000 ML IV SCH ×2 (00:31→14:40)
[2021-12-31] MEDS: Piperacillin/Tazobactam 3.375 GM in Sodium Chloride 0.9% 50 ML IV SCH ×3 (01:13→18:48)
[2021-12-31] MEDS: Baclofen 10 MG Tab PO SCH ×3 (06:11→21:03)
[2021-12-31] MEDS: Gabapentin 300 MG Cap PO SCH ×3 (06:11→21:03)
[2021-12-31] MEDS: Acetaminophen 325 MG Tab PO SCH ×3 (06:12→21:03)
[2021-12-31 07:55] LABS: BLOOD UREA NITROGEN,BUN 12 mg/dL (7.0-18.0); CARBON DIOXIDE,CO2 24.7 mmol/L (21.0-32.0); CHLORIDE,CL 100 mmol/L (98-107); GLUCOSE RANDOM 90 mg/dL (74-106); SODIUM,NA 131 mmol/L (136-145)
[2021-12-31] MEDS: Citalopram 20 MG Tab PO SCH (08:17)
[2021-12-31] MEDS: predniSONE 5 MG Tab PO SCH (08:18)
[2021-12-31] MEDS: Folic Acid 1 MG Tab PO SCH (08:18)
[2021-12-31] MEDS: hydrOXYzine HCl 25 MG Tab PO SCH (08:18)
[2021-12-31] MEDS: Pantoprazole 40 MG in Sodium Chloride 0.9% 10 ML IVPUSH SCH (08:19)
[2021-12-31] MEDS: Calcium Carbonate 500 MG Tablet PO SCH ×2 (08:19→21:03)
[2021-12-31] MEDS ORDERED: Docusate Sodium 100 MG Cap PO SCH (09:00)
[2022-01-01] MEDS: Piperacillin/Tazobactam 3.375 GM in Sodium Chloride 0.9% 50 ML IV SCH ×2 (01:01→10:10)
[2022-01-01] MEDS: Lactated Ringers 1,000 ML IV SCH (02:05)
[2022-01-01] MEDS: Baclofen 10 MG Tab PO SCH (06:20)
[2022-01-01] MEDS: Acetaminophen 325 MG Tab PO SCH (06:20)
[2022-01-01] MEDS: Gabapentin 300 MG Cap PO SCH (06:20)
[2022-01-01 07:03] LABS: BLOOD UREA NITROGEN,BUN 12 mg/dL (7.0-18.0); CHLORIDE,CL 104 mmol/L (98-107); GLUCOSE RANDOM 84 mg/dL (74-106); POTASSIUM,K 4.1 mmol/L (3.5-5.1); SODIUM,NA 137 mmol/L (136-145)
[2022-01-01] MEDS ORDERED: Docusate Sodium 100 MG Cap PO SCH (09:00)
[2022-01-01] MEDS: hydrOXYzine HCl 25 MG Tab PO SCH (10:06)
[2022-01-01] MEDS: predniSONE 5 MG Tab PO SCH (10:07)
[2022-01-01] MEDS: Citalopram 20 MG Tab PO SCH (10:07)
[2022-01-01] MEDS: Folic Acid 1 MG Tab PO SCH (10:09)
[2022-01-01] MEDS: Calcium Carbonate 500 MG Tablet PO SCH (10:09)
[2022-01-01] MEDS: Pantoprazole 40 MG in Sodium Chloride 0.9% 10 ML IVPUSH SCH (10:10)
== END 2022-01-01 12:15 | disposition home or self-care (01) ==
LOC: MW.ED 22:52 → MW.MS 12-30 04:35
PROVIDERS: ADMIT Student in an Organized Health Care Education/Training Program; ATTEND Student in an Organized Health Care Education/Training Program
DX: E87.1 Hypo-osmolality and hyponatremia (principal); R10.31 Right lower quadrant pain; M06.9 Rheumatoid arthritis, unspecified; J44.9 Chronic obstructive pulmonary disease, unspecified; F17.210 Nicotine dependence, cigarettes, uncomplicated; D72.829 Elevated white blood cell count, unspecified; G89.4 Chronic pain syndrome; K21.9 Gastro-esophageal reflux disease without esophagitis; Z20.822 Contact with and (suspected) exposure to COVID-19; Z87.39 Personal history of other diseases of the musculoskeletal system and connective tissue; Z91.013 Allergy to seafood; Z79.899 Other long term (current) drug therapy
CPT/HCPCS: 36415; 71045; 74018; 74177; 80048; 80053; 80202; 81003; 83605; 83735; 84100; 85025; 87040; A9270; C9113; J2270; J2543; J3370; J3490; J7030; J7050; J7120; J7512; Q9967; U0002

== ENCOUNTER 2022-06-14 07:43 | Emergency (ER) | payer MEDICARE, BC ==
[2022-06-14] MEDS ORDERED: Acetaminophen/HYDROcodone 325-5 MG Tab PO ONE (07:55)
[2022-06-14] MEDS ORDERED: Ketorolac 30 MG/ML SDV IVPUSH ONE (07:56)
[2022-06-14] MEDS ORDERED: Sodium Chloride 0.9% 2.5 ML Syringe FLUSH PRN (07:58)
[2022-06-14] MEDS ORDERED: Sodium Chloride 0.9% 10 ML Syringe FLUSH PRN (07:58)
[2022-06-14 08:16] LABS: CARBON DIOXIDE,CO2 22.8 mmol/L (21.0-32.0); POTASSIUM,K 4.1 mmol/L (3.5-5.1)
== END 2022-06-14 12:32 | disposition home or self-care (01) ==
LOC: MW.ED 07:43
DX: M54.2 Cervicalgia (principal); J44.9 Chronic obstructive pulmonary disease, unspecified; F17.210 Nicotine dependence, cigarettes, uncomplicated; Z91.013 Allergy to seafood
CPT/HCPCS: 36415; 80048; 96374; 99283; A9270; J1885; J3490

== ENCOUNTER 2023-01-14 00:40 | Emergency (ER) | payer MEDICARE, BC ==
[2023-01-14 00:59] LABS: BASOPHILS PERCENT AUTO 0.1 % (0.0-1.5); EOSINOPHILS PERCENT AUTO 0.2 % (0.0-7.0); HEMATOCRIT 33.9 % (36.0-46.0); HEMOGLOBIN 11.5 g/dL (12.0-16.0); LYMPHOCYTES PERCENT AUTO 6.8 % (16.0-40.0); MEAN CORPUSCULAR HEMOGLOBIN 31.3 pg (27.0-32.0); MEAN CORPUSCULAR HGB CONC 33.9 g/dL (31.0-37.0); MEAN CORPUSCULAR VOLUME 92.4 fL (80.0-98.0); MONOCYTES ABSOLUTE AUTO 1.2 K/uL (0.0-0.8); MONOCYTES PERCENT AUTO 8.1 % (0.0-15.0); NEUTROPHILS ABSOLUTE AUTO 12.5 K/uL (1.4-5.7); NEUTROPHILS PERCENT AUTO 84.8 % (48.0-80.0); NRBC ABSOLUTE 0 K/uL; PLATELET COUNT,PLT 240 K/uL (150-400); RED BLOOD CELL COUNT 3.67 M/uL (4.30-5.90); WHITE BLOOD CELL COUNT,WBC 14.75 K/uL (4.0-11.0)
[2023-01-14 01:21] LABS: A/G RATIO 0.8 (0.9-1.6); ALBUMIN 2.6 g/dL (3.4-5.0); BILIRUBIN TOTAL 0.3 mg/dL (0.2-1.0); CALCIUM 7.9 mg/dL (8.5-10.1); CARBON DIOXIDE,CO2 23.2 mmol/L (21.0-32.0); CREATININE 0.6 mg/dL (0.6-1.0); EST CRCL DRUG DOSING (CG) 70.6 mL/min; POTASSIUM,K 3.8 mmol/L (3.5-5.1); PROTEIN TOTAL,TP 5.9 g/dL (6.4-8.2)
[2023-01-14 01:36] LABS: CORONAVIRUS COVID-19 NAA NEGATIVE (NEGATIVE); INFLUENZA A NAA NEGATIVE (NEGATIVE); INFLUENZA B NAA NEGATIVE (NEGATIVE)
[2023-01-14 02:42] LABS: BASE EXCESS VENOUS 0.9 (-2.0-3.0); PH,VENOUS 7.49 (7.31-7.41)
[2023-01-14] MEDS ORDERED: Ondansetron 4 MG/2 ML SDV IVPUSH ONE (03:19)
[2023-01-14] MEDS ORDERED: Cefepime 2 GM Vial IVPUSH ONE (03:26)
[2023-01-14] MEDS ORDERED: Sodium Chloride 0.9% 500 ML IV SCH ×2 (03:30→05:00)
[2023-01-14] MEDS ORDERED: Iopamidol 755 MG/ML 500 ML Multipack Bottle IVPUSH STA (04:00)
[2023-01-14] MEDS ORDERED: Water For Injection, Sterile 10 ML SDV INJECT ONE (04:15)
[2023-01-14] MEDS: Water For Injection, Sterile 10 ML SDV INJECT ONE ×2 (04:15→04:16)
[2023-01-14 04:27] LABS: APPEARANCE,URINE CLEAR; BILIRUBIN,URINE NEGATIVE (NEGATIVE); COLOR,URINE YELLOW; GLUCOSE,URINE NEGATIVE (NEGATIVE); KETONES,URINE NEGATIVE (NEGATIVE); LEUKOCYTE ESTERASE,URINE NEGATIVE (NEGATIVE); NITRITE,URINE NEGATIVE (NEGATIVE); OCCULT BLOOD,URINE NEGATIVE (NEGATIVE); PROTEIN,URINE NEGATIVE (NEGATIVE); UROBILINOGEN,URINE 0.2 EU/dL (<2.0)
[2023-01-14 04:33] LABS: TSH ULTRASENSITIVE 0.86 uIU/mL (0.36-3.74)
[2023-01-14 04:37] LABS: AMPHETAMINES SCREEN, URINE NEGATIVE (CUTOFF=500); BARBITURATE SCREEN,URINE NEGATIVE (CUTOFF=200); BENZODIAZEPINES SCREEN,URINE NEGATIVE (CUTOFF=150); BUPRENORPHINE SCREEN,URINE NEGATIVE (CUTOFF=10); METHADONE SCREEN, URINE NEGATIVE (CUTOFF=200); METHAMPHETAMINES SCREEN, URINE NEGATIVE (CUTOFF=500); OXYCODONE SCREEN,URINE NEGATIVE (CUT0FF=100); PCP SCREEN,URINE NEGATIVE (CUTOFF=25); PROPOXYPHENE SCREEN,URINE NEGATIVE (CUTOFF=300); THC SCREEN,URINE 20 NG/ML NEGATIVE (CUTOFF=50)
[2023-01-14 04:40] LABS: BACTERIA,URINE RARE (NEGATIVE); EPITHELIAL CELLS,URINE RARE (NONE-FEW); RBC,URINE 0-1 (0-2/HPF); WBC,URINE 0-1 (0-5/HPF)
== END 2023-01-14 08:15 ==
LOC: MW.ED 00:40
DX: A41.9 Sepsis, unspecified organism (principal); K56.1 Intussusception; M06.9 Rheumatoid arthritis, unspecified; J44.9 Chronic obstructive pulmonary disease, unspecified; Z98.890 Other specified postprocedural states; Z88.8 Allergy status to other drugs, medicaments and biological substances; Z79.899 Other long term (current) drug therapy; Z20.822 Contact with and (suspected) exposure to COVID-19
CPT/HCPCS: 0240U; 36415; 71046; 73562; 74177; 80053; 80305; 81001; 82533; 82803; 83605; 84443; 84484; 85025; 87040; 93005; 96361; 96374; 96375; 99285; J0692; J2405; J7040; Q9967; 93010; 99291; J3490

== ENCOUNTER 2023-09-13 19:37 | Emergency (ER) | payer MEDICARE, BC ==
[2023-09-13 20:44] LABS: BASOPHILS ABSOLUTE AUTO 0.04 K/uL (0.00-0.20); BASOPHILS PERCENT AUTO 0.3 % (0.0-1.0); EOSINOPHILS ABSOLUTE AUTO 0.04 K/uL (0.00-0.45); EOSINOPHILS PERCENT AUTO 0.3 % (0.0-6.0); HEMATOCRIT 42.3 % (37.0-47.0); HEMOGLOBIN 14.5 g/dL (12.0-16.0); IMMATURE GRAN ABSOLUTE AUTO 0.03 K/uL (0.00-0.05); IMMATURE GRAN PERCENT AUTO 0.2 % (0.0-0.4); LYMPHOCYTES ABSOLUTE AUTO 1.24 K/uL (1.00-4.80); LYMPHOCYTES PERCENT AUTO 9.3 % (24.0-44.0); MEAN CORPUSCULAR HEMOGLOBIN 32.9 pg (28.0-32.0); MEAN CORPUSCULAR HGB CONC 34.3 g/dL (32.0-36.0); MEAN CORPUSCULAR VOLUME 95.9 fL (83.0-99.0); MEAN PLATELET VOLUME 9.2 fL (9.4-12.3); MONOCYTES PERCENT AUTO 5.3 % (0.0-8.0); NEUTROPHILS ABSOLUTE AUTO 11.24 K/uL (1.80-7.70); NEUTROPHILS PERCENT AUTO 84.6 % (41.0-71.0); PLATELET COUNT,PLT 287 K/uL (150-400); RED BLOOD CELL COUNT 4.41 M/uL (4.10-5.30); WHITE BLOOD CELL COUNT,WBC 13.29 K/uL (3.9-11.3)
[2023-09-13] MEDS: Sodium Chloride 0.9% 1,000 ML IV ONE (20:44)
[2023-09-13] MEDS: Sodium Chloride 0.9% 10 ML Syringe FLUSH PRN (20:44)
[2023-09-13] MEDS: Sodium Chloride 0.9% 2.5 ML Syringe FLUSH PRN (20:44)
[2023-09-13 20:58] LABS: ALANINE AMINOTRANSFERASE,ALT 38 IU/L (14-63); ALBUMIN 3.6 g/dL (3.4-5.0); ALKALINE PHOSPHATASE 156 U/L (46-116); ASPARTATE AMNIOTRANSFERASE,AST 29 IU/L (15-37); BILIRUBIN TOTAL 0.3 mg/dL (0.2-1.0); BLOOD UREA NITROGEN,BUN 20 mg/dL (7.0-18.0); CALCIUM 9.2 mg/dL (8.5-10.1); CARBON DIOXIDE,CO2 25.6 mmol/L (21.0-32.0); CHLORIDE,CL 94 mmol/L (98-107); CREATININE 0.6 mg/dL (0.6-1.0); EST CRCL DRUG DOSING (CG) 80.51 mL/min; GLUCOSE RANDOM 107 mg/dL (74-106); LIPASE 30 U/L (16-77); POTASSIUM,K 4.7 mmol/L (3.5-5.1); PROTEIN TOTAL,TP 7.3 g/dL (6.4-8.2); SODIUM,NA 131 mmol/L (136-145)
[2023-09-13 21:00] LABS: ESTIMATED GFR 96 mL/min (>60)
[2023-09-13] MEDS: Iopamidol 755 MG/ML 500 ML Multipack Bottle IVPUSH ONE (21:27)
[2023-09-13 21:46] LABS: CORONAVIRUS COVID-19 NAA NEGATIVE (NEGATIVE); INFLUENZA A NAA NEGATIVE (NEGATIVE); INFLUENZA B NAA NEGATIVE (NEGATIVE); RESPIRATORY SYNCYTIAL VIR NAA NEGATIVE (NEGATIVE)
[2023-09-13 22:32] LABS: APPEARANCE,URINE CLEAR; BILIRUBIN,URINE NEGATIVE (NEGATIVE); COLOR,URINE YELLOW; GLUCOSE,URINE NEGATIVE (NEGATIVE); KETONES,URINE NEGATIVE (NEGATIVE); LEUKOCYTE ESTERASE,URINE NEGATIVE (NEGATIVE); NITRITE,URINE NEGATIVE (NEGATIVE); OCCULT BLOOD,URINE NEGATIVE (NEGATIVE); PROTEIN,URINE NEGATIVE (NEGATIVE); UROBILINOGEN,URINE 0.2 EU/dL (<2.0)
[2023-09-13 22:44] LABS: BACTERIA,URINE RARE (NEGATIVE); EPITHELIAL CELLS,URINE RARE (NONE-FEW); RBC,URINE 0-1 (0-2/HPF); WBC,URINE 0-1 (0-5/HPF)
[2023-09-14] MEDS: cefTRIAXone 1 GM in Sodium Chloride 0.9% 50 ML IV ONE (00:18)
== END 2023-09-14 01:02 | disposition home or self-care (01) ==
LOC: MW.ED 19:37
DX: R10.9 Unspecified abdominal pain (principal); R35.0 Frequency of micturition; E87.1 Hypo-osmolality and hyponatremia; Z88.8 Allergy status to other drugs, medicaments and biological substances; Z79.899 Other long term (current) drug therapy
CPT/HCPCS: 0241U; 36415; 51798; 71045; 74177; 80053; 81001; 83690; 84484; 85025; 87086; 93005; 96361; 96365; 99284; J0696; J3490; J7030; Q9967; 93010